=== PATIENT | female | born 1960 | race African-American/Black ===

== ENCOUNTER 2024-01-06 11:39 | Inpatient (IN) | payer OTHER ==
[~2024-01-06] VITALS: Ht 157.5 cm; Wt 50.9 kg
[2024-01-06] MEDS: IV NS 0.9% 1,000 ML BAG IV ONE ×2 (11:53→14:05)
[2024-01-06 12:15] LABS: BASOPHILS # (AUTO) 0.1 K/uL (0.0-0.2); BASOPHILS % (AUTO) 1.4 % (0.0-2.0); EOSINOPHILS # (AUTO) 1.1 K/uL (0.0-0.7); EOSINOPHILS % (AUTO) 20.8 % (0.0-6.0); HEMATOCRIT 36 % (33-45); HEMOGLOBIN 11.9 g/dL (11.5-14.8); LYMPHOCYTES # (AUTO) 2.6 K/uL (0.8-4.8); LYMPHOCYTES % (AUTO) 47.9 % (20.0-44.0); MEAN CORPUSCULAR HEMOGLOBIN 29 PG (26.0-33.0); MEAN CORPUSCULAR HGB CONC 33 g/dl (31.0-36.0); MEAN CORPUSCULAR VOLUME 88 fL (82-100); MONOCYTES # (AUTO) 0.5 K/uL (0.1-1.30); MONOCYTES % (AUTO) 8.7 % (2.0-12.0); NEUTROPHILS # (AUTO) 1.2 K/uL (1.8-8.9); NEUTROPHILS % (AUTO) 21.2 % (43.0-81.0); PLATELET COUNT (AUTO) 301 K/uL (150-450); RED BLOOD CELL COUNT(AUTO) 4.08 MIL/uL (4.0-5.2); RED CELL DISTRIBUTION WIDTH 13.9 % (11.5-15.0); WHITE BLOOD COUNT (AUTO) 5.5 K/uL (4.3-11.0)
[2024-01-06 12:16] LABS: CALCIUM, SERUM 9.1 mg/dL (8.5-10.1); CARBON DIOXIDE 25 mmol/L (21-32); CHLORIDE 107 mmol/L (98-107); CREATININE 0.7 mg/dL (0.6-1.3); GLUCOSE 105 mg/dL (74-106); POTASSIUM 3.3 mmol/L (3.5-5.1); SODIUM SERUM 141 mmol/L (136-145); UREA NITROGEN, BLOOD 13 mg/dL (7-18)
[2024-01-06 12:18] LABS: SERUM AMMONIA 32 umol/L (11-32)
[2024-01-06 12:22] LABS: ALANINE AMINOTRANSFERASE 39 U/L (12-78); ALBUMIN 2.9 g/dL (3.4-5.0); ALCOHOL, BLOOD < 3 mg/dL (0-10); ALKALINE PHOSPHATASE 146 U/L (46-116); ASPARTATE AMINOTRANSFERASE 35 U/L (15-37); BILIRUBIN,DIRECT 0.1 mg/dL (0.0-0.2); BILIRUBIN,TOTAL 0.3 mg/dL (0.2-1.0); TOTAL PROTEIN, SERUM 6.4 g/dL (6.4-8.2)
[2024-01-06 12:29] LABS: SALICYLATE 0.4 mg/dL (2.8-20.0)
[2024-01-06 12:46] LABS: APPEARANCE,URINE CLEAR (CLEAR); BILIRUBIN,URINE NEGATIVE (NEGATIVE); BLOOD, URINE 1+ Ery/uL (NEGATIVE); COLOR,URINE YELLOW (YELLOW); KETONES,URINE NEGATIVE (NEGATIVE); LEUKOCYTE ESTERASE ,URINE 3+ (NEGATIVE); NITRITE, URINE NEGATIVE (NEGATIVE); PROTEIN,URINE NEGATIVE (NEGATIVE); UGLUCOSE NEGATIVE (NEGATIVE); UROBILINOGEN,URINE 0.2 EU/dL (0.2)
[2024-01-06 12:47] LABS: ADD URINE CULTURE YES; BACTERIA,URINE Few /HPF (None Seen); SQUAMOUS EPITHELIAL CELL,UR Rare /HPF (None Seen)
[2024-01-06 12:57] LABS: AMPHETAMINE, URINE NEGATIVE (NEGATIVE); BARBITURATE, URINE NEGATIVE (NEGATIVE); BENZODIAZEPINE, URINE NEGATIVE (NEGATIVE); CANNABINOID, URINE NEGATIVE (NEGATIVE); OPIATE, URINE NEGATIVE (NEGATIVE); PHENCYCLIDINE SCREEN,URINE NEGATIVE (NEGATIVE)
[2024-01-06 12:59] LABS: COCCAINE, URINE POSITIVE (NEGATIVE)
[2024-01-06] MEDS ORDERED: CEFTRIAXONE 1GM BAG (ER ONLY) 50 ML IV ONE (14:05)
[2024-01-06] MEDS: CEFTRIAXONE 1 G in IV D5W 50 ML IV ONE (14:06)
[2024-01-06 15:26] VITALS: BP 139/80; TEMP 97.5; O2SAT 97
[2024-01-06] MEDS ORDERED: POTASSIUM CL. PREMIX PERIPHER. 50 ML IV SCH (15:30)
[2024-01-06] MEDS ORDERED: Z GUARD REMEDY 4 OZ OINT TP PRN (15:30)
[2024-01-06] MEDS ORDERED: LORAZEPAM INJ 2 MG/ML VIAL IV PRN (15:30)
[2024-01-06] MEDS ORDERED: MAGNESIUM HYDROXIDE 30 ML UDC PO PRN (15:30)
[2024-01-06] MEDS ORDERED: ONDANSETRON HCL/PF 4 MG/2 ML VIAL IVP PRN (15:30)
[2024-01-06] MEDS: IV 1/2NS 1000 ML 1,000 ML IV PRN (15:36)
[2024-01-06] MEDS ORDERED: FLUT16SP16 BNOSTRILS (15:53)
[2024-01-06] MEDS ORDERED: DICL100G26 TP (15:53)
[2024-01-06] MEDS ORDERED: CYCL30DR EACHEYE (15:53)
[2024-01-06] MEDS ORDERED: TOPI50TA24 PO (15:53)
[2024-01-06] MEDS ORDERED: HYDR50TA61 PO (15:53)
[2024-01-06] MEDS ORDERED: ALBU18HF2 IH (15:53)
[2024-01-06] MEDS ORDERED: MAGN400T26 PO (15:53)
[2024-01-06] MEDS ORDERED: DIPH25TA23 PO (15:53)
[2024-01-06] MEDS ORDERED: AMMO225L14 TP (15:53)
[2024-01-06] MEDS ORDERED: LEVE750T10 PO (15:53)
[2024-01-06] MEDS ORDERED: SERT100T PO (15:53)
[2024-01-06] MEDS ORDERED: ATOR40TA PO (15:53)
[2024-01-06] MEDS ORDERED: DOCU100C36 PO (15:53)
[2024-01-06] MEDS ORDERED: PROP15DR EACHEYE (15:53)
[2024-01-06] MEDS ORDERED: CLOT15CR35 TP (15:53)
[2024-01-06] MEDS: ENOXAPARIN SODIUM 40 MG/0.4 ML DISP.SYRIN SQ SCH (16:00)
[2024-01-06] MEDS: POTASSIUM CHLORIDE 20 MEQ TAB.PRT.SR PO ONE (16:07)
[2024-01-06] MEDS: CEFTRIAXONE 1 G in IV D5W 50 ML IV SCH (16:08)
[2024-01-06 16:33] VITALS: BP 139/80; TEMP 97.5; O2SAT 97
[2024-01-06 18:42] VITALS: BP 139/80; TEMP 97.5; O2SAT 97
[2024-01-06 20:13] VITALS: BP 112/61; TEMP 97.9; O2SAT 99
[2024-01-06] MEDS: ATORVASTATIN 40 MG TABLET PO SCH (22:17)
[2024-01-07 00:10] VITALS: BP 151/95; TEMP 98.1; O2SAT 100
[2024-01-07 04:12] VITALS: BP 127/84; TEMP 97.7; O2SAT 100
[2024-01-07 07:07] LABS: BASOPHILS # (AUTO) 0.1 K/uL (0.0-0.2); BASOPHILS % (AUTO) 1.1 % (0.0-2.0); EOSINOPHILS % (AUTO) 22.1 % (0.0-6.0); HEMATOCRIT 35 % (33-45); HEMOGLOBIN 11.8 g/dL (11.5-14.8); LYMPHOCYTES % (AUTO) 42.9 % (20.0-44.0); MEAN CORPUSCULAR HEMOGLOBIN 30 PG (26.0-33.0); MEAN CORPUSCULAR HGB CONC 34 g/dl (31.0-36.0); MEAN CORPUSCULAR VOLUME 89 fL (82-100); MONOCYTES # (AUTO) 0.5 K/uL (0.1-1.30); MONOCYTES % (AUTO) 9.7 % (2.0-12.0); NEUTROPHILS # (AUTO) 1.1 K/uL (1.8-8.9); NEUTROPHILS % (AUTO) 24.2 % (43.0-81.0); PLATELET COUNT (AUTO) 307 K/uL (150-450); RED BLOOD CELL COUNT(AUTO) 3.93 MIL/uL (4.0-5.2); RED CELL DISTRIBUTION WIDTH 14.2 % (11.5-15.0); WHITE BLOOD COUNT (AUTO) 4.7 K/uL (4.3-11.0)
[2024-01-07 07:30] VITALS: BP 157/89; TEMP 97.6; O2SAT 100
[2024-01-07 07:49] LABS: CALCIUM, SERUM 8.5 mg/dL (8.5-10.1); CREATININE 0.6 mg/dL (0.6-1.3); MAGNESIUM 2.1 mg/dL (1.8-2.4); PHOSPHORUS 3.7 mg/dL (2.5-4.9); POTASSIUM 3.9 mmol/L (3.5-5.1)
[2024-01-07] MEDS: LEVETIRACETAM (250 MG) 250 MG TABLET PO SCH (08:14)
[2024-01-07] MEDS: SERTRALINE HCL 50 MG TABLET PO SCH (08:14)
[2024-01-07] MEDS: TOPIRAMATE 100 MG TABLET PO SCH (08:15)
[2024-01-07] MEDS: PANTOPRAZOLE 40 MG TABLET.DR PO SCH (08:15)
[2024-01-07 08:35] VITALS: BP 144/84; TEMP 97.9; O2SAT 99
[2024-01-07] MEDS ORDERED: Medication Not On Formulary EA (Cyclosporine (Restasis) 1 DROP) EACHEYE SCH (09:00)
[2024-01-07 10:25] LABS: ANISOCYTOSIS 1+; BASOPHILS % (MANUAL) 0 % (0.0-2.0); EOSINOPHILS % (MANUAL) 23 % (0-4); LYMPHOCYTES % (MANUAL) 46 % (16-48); MONOCYTES % (MANUAL) 7 % (0-11.0); NEUTROPHILS % (MANUAL) 24 (42-76); PLATELET ESTIMATE ADEQUATE
[2024-01-07 16:00] VITALS: BP 127/76; TEMP 98.2; O2SAT 100
[2024-01-07] MEDS: ACETAMINOPHEN 325 MG TABLET PO PRN (21:30)
[2024-01-08 00:45] VITALS: BP 124/71; TEMP 97.7; O2SAT 100
[2024-01-08 00:50] VITALS: BP 124/71; TEMP 98.2; O2SAT 100
[2024-01-08 07:08] LABS: FOLIC ACID 6.6 ng/mL (>3.0)
[2024-01-08 07:30] VITALS: BP 153/85; TEMP 97.6; O2SAT 99
[2024-01-08] MEDS ORDERED: CEPH-570 PO (10:48)
== END 2024-01-08 12:20 | disposition home or self-care (01) | DRG 53 ==
LOC: ER 11:43 → TELE 14:11
PROVIDERS: ADMIT Nurse Practitioner Family; ATTEND Internal Medicine
DX: G40.909 Epilepsy, unspecified, not intractable, without status epilepticus (principal); G93.40 Encephalopathy, unspecified; N39.0 Urinary tract infection, site not specified; F03.90 Unspecified dementia, unspecified severity, without behavioral disturbance, psychotic disturbance, mood disturbance, and anxiety; E78.5 Hyperlipidemia, unspecified; E87.6 Hypokalemia; B96.89 Other specified bacterial agents as the cause of diseases classified elsewhere; F14.10 Cocaine abuse, uncomplicated; I10 Essential (primary) hypertension; I70.0 Atherosclerosis of aorta; R94.31 Abnormal electrocardiogram [ECG] [EKG]; Z85.841 Personal history of malignant neoplasm of brain; Z98.890 Other specified postprocedural states; Z79.51 Long term (current) use of inhaled steroids; Z79.899 Other long term (current) drug therapy
CPT/HCPCS: 36415; 70450-TC; 71045-TC; 80048-TC; 80061-TC; 80076-TC; 81001; 82140-TC; 82607-TC; 83735-TC; 83921; 84100-TC; 84443-TC; 84484-TC; 85025-TC; 87040-TC; 87086-TC; A4223; G0378; G0480; J0696; J1650; J3490; J7030; J7060

== ENCOUNTER 2024-06-03 19:36 | Emergency (ER) | payer OTHER ==
[~2024-06-03] VITALS: Ht 154.9 cm; Wt 47.2 kg
[~2024-06-03 19:36] MED LIST: ALBU18HF2 IH; AMMO225L14 TP; ATOR40TA PO; CEPH-570 PO; CLOT15CR35 TP; CYCL30DR EACHEYE; DICL100G26 TP; DIPH25TA23 PO; DOCU100C36 PO; FLUT16SP16 BNOSTRILS; HYDR50TA61 PO; LEVE750T10 PO; MAGN400T26 PO; PROP15DR EACHEYE; SERT100T PO; TOPI50TA24 PO
[2024-06-03] MEDS: ONDANSETRON HCL/PF 4 MG/2 ML VIAL IM ONE (22:49)
[2024-06-03] MEDS: IV NS 0.9% 1,000 ML BAG IV ONE (22:49)
[2024-06-03] MEDS: MORPHINE SULFATE INJ 2 MG/ML DISP.SYRIN IV ONE (22:49)
[2024-06-03 23:10] LABS: BASOPHILS % (AUTO) 0.4 % (0.0-2.0); EOSINOPHILS # (AUTO) 0.3 K/uL (0.0-0.7); EOSINOPHILS % (AUTO) 4.8 % (0.0-6.0); HEMATOCRIT 40 % (33-45); HEMOGLOBIN 13.5 g/dL (11.5-14.8); LYMPHOCYTES # (AUTO) 0.4 K/uL (0.8-4.8); LYMPHOCYTES % (AUTO) 7.1 % (20.0-44.0); MEAN CORPUSCULAR HEMOGLOBIN 29 PG (26.0-33.0); MEAN CORPUSCULAR HGB CONC 34 g/dl (31.0-36.0); MEAN CORPUSCULAR VOLUME 87 fL (82-100); MONOCYTES # (AUTO) 0.2 K/uL (0.1-1.30); MONOCYTES % (AUTO) 3.4 % (2.0-12.0); NEUTROPHILS # (AUTO) 5.2 K/uL (1.8-8.9); NEUTROPHILS % (AUTO) 84.3 % (43.0-81.0); PLATELET COUNT (AUTO) 349 K/uL (150-450); RED BLOOD CELL COUNT(AUTO) 4.64 MIL/uL (4.0-5.2); WHITE BLOOD COUNT (AUTO) 6.2 K/uL (4.3-11.0)
[2024-06-03 23:53] LABS: APPEARANCE,URINE CLEAR (CLEAR); BILIRUBIN,URINE NEGATIVE (NEGATIVE); BLOOD, URINE 2+ Ery/uL (NEGATIVE); COLOR,URINE YELLOW (YELLOW); KETONES,URINE NEGATIVE (NEGATIVE); LEUKOCYTE ESTERASE ,URINE TRACE (NEGATIVE); NITRITE, URINE NEGATIVE (NEGATIVE); PROTEIN,URINE TRACE mg/dl (NEGATIVE); UGLUCOSE NEGATIVE (NEGATIVE); UROBILINOGEN,URINE 0.2 EU/dL (0.2)
[2024-06-04] MEDS ORDERED: ONDA4TAB11 PO (00:05)
[2024-06-04 00:20] LABS: ADD URINE CULTURE YES; BACTERIA,URINE Few /HPF (None Seen)
[2024-06-04 00:21] LABS: URINE AMORPHOUS URATE Moderate /HPF (None Seen)
[2024-06-04 00:22] LABS: ALBUMIN 3.7 g/dL (3.4-5.0); BILIRUBIN,TOTAL 0.4 mg/dL (0.2-1.0); CALCIUM, SERUM 9.1 mg/dL (8.5-10.1); CREATININE 0.7 mg/dL (0.6-1.3); POTASSIUM 3.3 mmol/L (3.5-5.1); TOTAL PROTEIN, SERUM 7.3 g/dL (6.4-8.2)
[2024-06-04] MEDS ORDERED: IV NS 0.9% 250 ML IV ONE (00:32)
[2024-06-04] MEDS ORDERED: IOHEXOL-300 100 ML VIAL IV ONE (00:32)
[2024-06-04 01:06] VITALS: BP 128/86; TEMP 97.8; O2SAT 99
== END 2024-06-04 01:12 | disposition home or self-care (01) ==
LOC: ER 19:40
DX: R19.7 Diarrhea, unspecified (principal); G40.909 Epilepsy, unspecified, not intractable, without status epilepticus; E78.5 Hyperlipidemia, unspecified; F17.200 Nicotine dependence, unspecified, uncomplicated; I10 Essential (primary) hypertension; Z79.621 Long term (current) use of calcineurin inhibitor; Z79.899 Other long term (current) drug therapy
CPT/HCPCS: 99285; 74177; 96374; 96361; 85025; 87086; 83690; 81001; 36415; 80053; 96372; J2405; J7030; J2270; J7050; Q9967

== ENCOUNTER 2024-12-29 11:32 | Emergency (ER) | payer OTHER ==
[~2024-12-29] VITALS: Ht 157.5 cm; Wt 50.5 kg
[~2024-12-29 11:32] MED LIST changes: +ONDA4TAB11 PO
[2024-12-29 12:19] LABS: BASOPHILS % (AUTO) 0.8 % (0.0-2.0); EOSINOPHILS # (AUTO) 0.8 K/uL (0.0-0.7); HEMATOCRIT 38 % (33-45); HEMOGLOBIN 12.6 g/dL (11.5-14.8); LYMPHOCYTES % (AUTO) 37.6 % (20.0-44.0); MEAN CORPUSCULAR HEMOGLOBIN 29 PG (26.0-33.0); MEAN CORPUSCULAR HGB CONC 33 g/dl (31.0-36.0); MEAN CORPUSCULAR VOLUME 88 fL (82-100); MONOCYTES # (AUTO) 0.5 K/uL (0.1-1.30); MONOCYTES % (AUTO) 9.1 % (2.0-12.0); NEUTROPHILS # (AUTO) 2.1 K/uL (1.8-8.9); NEUTROPHILS % (AUTO) 38.5 % (43.0-81.0); PLATELET COUNT (AUTO) 391 K/uL (150-450); RED BLOOD CELL COUNT(AUTO) 4.34 MIL/uL (4.0-5.2); RED CELL DISTRIBUTION WIDTH 13.9 % (11.5-15.0); WHITE BLOOD COUNT (AUTO) 5.4 K/uL (4.3-11.0)
[2024-12-29 12:25] LABS: CALCIUM, SERUM 8.9 mg/dL (8.5-10.1); CREATININE 0.8 mg/dL (0.6-1.3)
[2024-12-29] MEDS ORDERED: POTASSIUM CHLORIDE 20 MEQ TAB.PRT.SR PO ONE (13:39)
[2024-12-29] MEDS: POTASSIUM CHLORIDE 20 MEQ TAB.PRT.SR PO ONE (13:46)
[2024-12-29] MEDS ORDERED: ACETAMINOPHEN ES 500 MG TABLET ONE (14:58)
[2024-12-29] MEDS: ACETAMINOPHEN ES 500 MG TABLET PO ONE (15:09)
[2024-12-29 15:28] VITALS: BP 139/83; TEMP 97.5; O2SAT 99
== END 2024-12-29 15:29 | disposition home or self-care (01) ==
LOC: ER 11:34
DX: R20.2 Paresthesia of skin (principal); R20.0 Anesthesia of skin; I10 Essential (primary) hypertension; Z79.621 Long term (current) use of calcineurin inhibitor; Z79.899 Other long term (current) drug therapy; Z86.69 Personal history of other diseases of the nervous system and sense organs; Z85.841 Personal history of malignant neoplasm of brain
CPT/HCPCS: 36415; 70450-TC; 80048-TC; 85025-TC